=== PATIENT | male | born 1955 | race Asian ===

== ENCOUNTER 2023-01-04 23:20 | Emergency (ER) | payer BC ==
[~2023-01-04] VITALS: Ht 175.3 cm; Wt 93.4 kg
[~2023-01-04 23:20] MED LIST: ALBU90AE13 INH; ALBUTEROL0.083 % IN; AMOX875T8 PO; FLUT0.05 NAS; LISI10TA11 PO; LORA10TA3 PO
[2023-01-05 00:30] VITALS: BP 150/90; TEMP 98.6
== END 2023-01-05 00:30 | disposition home or self-care (01) ==
LOC: ED 23:20
DX: M54.42 Lumbago with sciatica, left side (principal)
CPT/HCPCS: 96372; 99283; J1885

== ENCOUNTER 2023-01-05 05:01 | Emergency (ER) | payer BC ==
[~2023-01-05] VITALS: Ht 175.3 cm; Wt 95.3 kg
[2023-01-05 07:15] VITALS: BP 136/97; TEMP 98.1
== END 2023-01-05 07:20 | disposition home or self-care (01) ==
LOC: ED 05:01
DX: M54.42 Lumbago with sciatica, left side (principal); M54.41 Lumbago with sciatica, right side
CPT/HCPCS: 96374; 99284; J1885